=== PATIENT | female | born 1970 | race Caucasian/White ===

== ENCOUNTER → 2019-09-21 | Outpatient (CLI) | payer OTHER ==
[~2019-09-21] MED LIST: BACTRIM DS TAB1 EACH PO; KEFLEX500 MG PO; NAPROXEN 500MG500 MG PO; NORCO 5-325 TA1 EACH PO; SYNOVACIN500 MG PO
== END ==
LOC: M.RAD 09:21
PROVIDERS: ATTEND Nurse Practitioner Women's Health
DX: Z12.31 Encounter for screening mammogram for malignant neoplasm of breast (principal)